=== PATIENT | female | born 1990 | race Caucasian/White ===

== ENCOUNTER 2017-05-12 08:50 | Observation (INO) | payer OTHER ==
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
[2017-05-12 09:50] LABS: HEMATOCRIT 40.9 % (38.0-47.0); HEMOGLOBIN 14.5 g/dL (12.6-16.3); LIPEMIA HEMOLYSIS FLAG 90 (0-99); MEAN CELL HEMOGLOBIN 32.5 pg (27.9-34.1); MEAN CELL HEMOGLOBIN CONCENTR. 35.5 g/dL (32.4-36.7); MEAN CELL VOLUME 91.7 fL (81.5-99.8); PLATELET CLUMPS FLAG 10 (0-99); PLATELET COUNT 174 10^3/uL (150-400); RED BLOOD CELL COUNT 4.46 10^6/uL (4.18-5.33); RED CELL DISTRIBUTION WIDTH 13.1 % (11.5-15.2)
[2017-05-12 09:59] LABS: ANION GAP 8 mEq/L (8-16); CALCIUM 8.8 mg/dL (8.5-10.4); CARBON DIOXIDE 23 mEq/l (22-31); CHLORIDE 103 mEq/L (97-110); CREATININE 0.6 mg/dL (0.6-1.0); GLOMERULAR FILTRATION RATE > 60; GLUCOSE 59 mg/dL (70-100); POTASSIUM 3.9 mEq/L (3.5-5.2); SODIUM 134 mEq/L (134-144)
[2017-05-12 13:08] LABS: FETAL STAIN NEGATIVE NEGATIVE; FETAL STAIN POSITIVE POSITIVE
[2017-05-12 14:45] LABS: FETAL STAIN LOT NUMBER 93179
== END 2017-05-12 13:25 | disposition home or self-care (01) ==
LOC: FLD 08:50
PROVIDERS: ADMIT Obstetrics & Gynecology; ATTEND Obstetrics & Gynecology
DX: Z04.1 Encounter for examination and observation following transport accident (principal); O99.89 Other specified diseases and conditions complicating pregnancy, childbirth and the puerperium; R42 Dizziness and giddiness; Z3A.28 28 weeks gestation of pregnancy
CPT/HCPCS: 59025; 76815; G0378

== ENCOUNTER 2017-08-08 04:40 | Inpatient (IN) | payer OTHER ==
[2017-08-08] MEDS ORDERED: TERBUTALINE SULFATE 1 MG/ML VIAL IV PRN (07:07)
[2017-08-08] MEDS ORDERED: LR 1,000 ML IV PRN (07:07)
[2017-08-08] MEDS ORDERED: MISOPROSTOL 200 MCG TAB PR PRN (07:07)
[2017-08-08] MEDS ORDERED: EPSOM SALT 454 GM TP PRN (07:07)
[2017-08-08] MEDS ORDERED: IBUPROFEN 600 MG TAB PO PRN (07:07)
[2017-08-08] MEDS ORDERED: OLIVE OIL 118 ML BTL MISC PRN (07:07)
[2017-08-08] MEDS ORDERED: OXYTOCIN 20 UNIT in LR 1,000 ML IV PRN (07:07)
[2017-08-08 08:26] LABS: PLATELET COUNT 172 10^3/uL (150-400)
--- NOTE | 2017-08-08 09:23 | GHP ---
[f rep st] HISTORY AND PHYSICAL DATE OF ADMISSION: 08/08/2017 ADMISSION DIAGNOSES: 1. Intrauterine at 40 weeks and 4 days. 2. Active labor. HISTORY OF PRESENT ILLNESS: Patient is a 27-year-old, 1, para 0, at 40 weeks and 4 days, with LMP 10/21/2016, an estimated due date 08/04/2017 by a 1st -trimester ultrasound at 7 weeks. Patient presents to Labor and Delivery with complaints of painful contractions, worsening every 5 minutes. Denies any leakage of fluid or vaginal bleeding. States good movement. Patient did have her membranes swept yesterday. Patient has good care at [facility], and presented in her first trimester at 8 weeks. Patient does have history of anxiety, stable throughout on Zoloft. Patient had genetic testing that was all negative. On 20-week ultrasound, anatomy was normal, however, there was a low-lying placenta. There was a follow-up ultrasound done at 32 weeks, and this resolved. Patient did receive Tdap and flu vaccine. GBS is negative. PAST OB HISTORY: Patient is a primipara. PAST SPORTS EDITOR HISTORY: Age of menarche is 14. Cycles are every 28 days for 5-7 days. LMP 10/21/2016. Positive test 11/27/2016. Patient denies history of abnormal Pap smears or any exposure to sexually transmitted diseases. MEDICATIONS: Include vitamins, Zoloft, and vitamin B6. PAST MEDICAL HISTORY: Anxiety. Migraines, stress related. PAST SURGICAL HISTORY: [place] teeth extraction. In 1997, subdural hematoma, status post a fall. FAMILY HISTORY: Maternal grandfather had colon cancer. Mother and Father with chronic hypertension. SOCIAL HISTORY: Patient is . She lives with her . 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 She denies any alcohol, tobacco, or illicit drug use. REVIEW OF SYSTEMS: 10-point review of systems negative. Pertinent positives noted in HPI. LABS: O positive, antibody negative. RPR nonreactive. Rubella immune. Hepatitis B surface antigen negative. HIV negative. [place] screen was negative, December 2016. Urine culture negative. Pap smear, gonorrhea and chlamydia cultures negative. AFP is negative. Innatal screen negative. H and H 13.6/39.1. One-hour Glucola 121. GBS culture negative. PHYSICAL EXAMINATION: On admission, VITAL SIGNS: Stable. Patient is afebrile. GENERAL: Well-nourished, well-developed female, alert and oriented x3. Mild distress secondary to pain with contractions. CARDIOVASCULAR: Regular rate and rhythm. LUNGS: Clear to auscultation bilaterally. ABDOMEN: Gravid, soft, nontender. PELVIC: On admission, she was found to be 3 cm, 70% effaced, -2 station. She ambulated for 2 hours, and then cervix changed to 4-5 cm, 80%, and -2 station. EXTREMITIES: Normal to inspection without calf tenderness or edema. HEART TONES: Category I strip, with heart rate baseline of 140 beats per minute. Positive accelerations. No decelerations. Moderate variability. On toco, she is edgar about every 5 minutes. ASSESSMENT/PLAN: Patient is a 27-year-old, 1, para 0, at 40 weeks and 4 days, in active labor. 1. Admit to Labor and Delivery for expectant management. 2. GBS culture is negative. No prophylactic antibiotics needed. 3. Patient does desire an epidural. 4. Will AROM at the next exam. 5. Anticipate vaginal delivery. /[id number]/MODL MTDD
--- NOTE | 2017-08-08 11:18 | PREANESOB ---
Obstetric Pre-Anesthesia Info - General Info Proposed Procedure: DEIDRE : 1 Para: 0 TASHA: 08/04/17 Gestational Age: 40 week(s) and 4 day(s) - Info Status: Full Term FHR Pattern: Reassuring - Labor Status Indications for Labor Analgesia: Pain Control Labor Epidural: Yes Anesthesia ROS: migraines, anxiety Allergies/Adverse Reactions: Allergy/AdvReac Type Severity Reaction Status Date / Time No Known Allergies Allergy Unverified 05/12/17 09:04 Home Medications: Medication Instructions Recorded 50 mg PO DAILY 05/12/17 Zoloft 50mg (*) 50 PO DAILY 08/08/17 Visit Medications: Generic Name Dose Route Start Last Admin Trade Name Freq PRN Reason Stop Dose Admin Lactated Ringer's 1,000 mls @ 0 mls/hr 08/08/17 07:07 Lr IV 08/09/17 07:06 PRN PRN SEE PROTOCOL CONDITIONS Protocol Per Protocol Oxytocin 20 unit/ Lactated 1,002 mls @ 150 mls/hr 08/08/17 07:07 Ringer's IV PRN PRN Post- bleeding Ibuprofen 600 mg 08/08/17 07:07 Motrin PO 02/04/18 07:06 Q6HRS PRN post , inflammation Magnesium Sulfate 454 gm 08/08/17 07:07 Epsom Salt TP 02/04/18 07:06 Q1H PRN perineal discomfort Misoprostol 800 - 1,000 mcg 08/08/17 07:07 Cytotec MS ONCE PRN Vaginal Atony/Bleeding [place] Oil 118 ml 08/08/17 07:07 Sweet Oil MISC 02/04/18 07:06 ONCE PRN perineal massage Terbutaline Sulfate 0.25 mg 08/08/17 07:07 Brethine IV 02/04/18 07:06 ONCE PRN Tachysystole - Anesthesia History Response to Local Anesthetics: Normal Anesthesia & Operative History: No Prior Problems Family Anesthesia History: Negative - Vital Signs Height/Weight (Nursing): Height 172.72 cm Weight 77.564 kg - Focused Exam Neck exam: FROM Mallampati Score: Class 1 Mouth exam: normal dental/mouth exam Pulmonary: no respiratory distress Cardiovascular: regular rate and rhythym Labs: 08/08/17 08:00 Patient ABO/Rh O POSITIVE 08/08/17 08:00 - Plan Consent Signed and on Chart: Yes Patient/Guardian Understands and Agrees to Plan: Yes Urgent/Emergent Case: Anes eval completed preop but documented later for safe timely pt care
[2017-08-08] MEDS ORDERED: FENT2MCG/ML&BUP0.1% 1 EA, fentaNYL 200 MCG, BUPIVACAINE 0.5% 20 ML in NS 100 ML IV SCH (11:20)
--- NOTE | 2017-08-08 11:22 | OBPROG ---
Labor Progress Note Assessment/Plan: Assessment: 27 y/o @ 40 4/7 wks in active labor Plan: Continue expectant management AROM-small amount of clear fluid noted FHTs - Cat I tracing Pt desires an epidural 08/08/17 11:20 Subjective/Intrapartum Course: 08/08/17 11:21 Pt is out of the tub and standing at the bedside. States pain with ctx's /10 and is requesting an epidural. Objective: 08/08/17 08:00 Patient ABO/Rh O POSITIVE 08/08/17 08:00 - SVE Dilation (cm): 8 Effacement (%): 100 Station: 0 Membranes: AROM Amniotic Fluid Color: Clear - Contraction Pattern Assessment Current Contraction Pattern: Regular (q 3-4 ) - FHR Assessment Mi FHR (bpm): 140 FHR Pattern Variability: Moderate FHR Category: 1 - Procedures Non-surgical Procedures: Amniotomy - AP Antepartum Course: 08/08/17 11:26 Pt presented in early labor at 3 cm and made change to 4-5 cm after ambulating. GBS cx negative. Oxytocin Orders Assessment - Pre-Induction/Augmentation Assessment Gestational Age: 40 week(s) and 4 day(s) ICD10 Worksheet Patient Problems: Problems Problem Status Onset Post-dates Acute - ICD10 Problem Qualifiers (1) Post-dates
[2017-08-08] MEDS ORDERED: BUPIVACAINE 0.25% 30 ML SDV ONE (11:24)
[2017-08-08] MEDS ORDERED: PHENYLEPHRINE HCL 100 MCG/ML SYR ONE (11:24)
[2017-08-08] MEDS ORDERED: NALOXONE HCL 0.4 MG/ML INJ IVP PRN (11:55)
[2017-08-08] MEDS ORDERED: PHENYLEPHRINE HCL 100 MCG/ML SYR IVP PRN (11:55)
[2017-08-08] MEDS ORDERED: ONDANSETRON 4 MG/2 ML VIAL IVP PRN (11:55)
--- NOTE | 2017-08-08 11:58 | POSTANESTH ---
Post Anesthetic Evaluation Cardiovascular Status: Normal, Stable, Similar to Pre-Op Cond Respiratory Status: Normal, Stable, Similar to Pre-op Cond. Level of Consciousness/Mental Status: Can Participate in Eval, Alert and Oriented Pain Control: Adequate, Prn Tx Ordered Nausea/Vomiting Control: Adequate, Prn Tx Ordered Complications Possibly Related to Anesthesia: None Noted
[2017-08-08] MEDS ORDERED: fentaNYL 2MCG/ML/BUP 0.1% RTU 100 ML EP SCH (12:00)
[2017-08-08] MEDS ORDERED: LR 500 ML IV SCH (12:00)
[2017-08-08] MEDS ORDERED: OLIVE OIL 118 ML BTL ONE (13:16)
[2017-08-08] MEDS ORDERED: AMMONIA AROMATIC 1 EACH AMP IH ONE (13:16)
[2017-08-08] MEDS ORDERED: LIDOCAINE 1% 300 MG/30 ML SDV ONE (13:16)
[2017-08-08] MEDS ORDERED: TERBUTALINE SULFATE 1 MG/ML VIAL ONE (13:16)
[2017-08-08] MEDS ORDERED: MISOPROSTOL 200 MCG TAB ONE (13:17)
[2017-08-08] MEDS ORDERED: OXYTOCIN 10 UNIT/ML VIAL ONE (13:17)
[2017-08-08] MEDS ORDERED: SIMETHICONE 80 MG TAB CHEW PO PRN (15:08)
[2017-08-08] MEDS ORDERED: DOCUSATE SODIUM 100 MG CAP PO PRN (15:08)
[2017-08-08] MEDS ORDERED: HYDROCORTISONE 0.5% CREAM TP PRN (15:08)
[2017-08-08] MEDS ORDERED: HYDROCODONE/APAP 5/325 TAB PO PRN (15:08)
--- NOTE | 2017-08-08 15:15 | OBDEL ---
Info Type: Vaginal Presentation at Delivery: Vertex L&D Analgesia/Anesthesia Type: Epidural GBS+: No - Hospital Course Intrapartum: 08/08/17 11:21 Pt is out of the tub and standing at the bedside. States pain with ctx's 8/10 and is requesting an epidural. Indications for Delivery: Spontaneous Labor Vaginal Delivery - Delivery Provider Delivery Physician/CNM: Char Ewing - Labor and Delivery Onset of Contractions Date: 08/07/17 Onset of Contractions Time: 23:00 Onset of Contractions Type: Spontaneous Rupture of Membranes Date: 08/08/17 Rupture of Membranes Time: 11:20 Rupture of Membranes Type: Spontaneous Amniotic Fluid Color: Clear Dilation Complete Date: 08/08/17 Dilation Complete Time: 13:42 Placenta Delivery Date: 08/08/17 Placenta Delivery Time: 14:25 Total Hours of Labor: 15 Non-surgical Procedures: Amniotomy Laceration: 2nd Degree, Other (Specify) Repair: 3-0, Vicryl Vaginal Sponge Count Correct: Yes Vaginal Needle Count Correct: Yes Vaginal Sweep Performed: Yes EBL: 350 cc Delivery Events: None Delivery Comment: Pt delivered a viable female over intact perineum with compound presentation with 8 and 8 Apgars; no nuchal cord. Cord clamping was delayed. Cord blood collected. Placenta delivered intact spontaneously with a 3-vc. 2 degree perineal lac noted to L of midline and repaired with 3-0 Vicryl under epidural. Pt [place] well. No complications. [place] Data TASHA: 08/04/17 Gestational Age: 40 week(s) and 4 day(s) Mi Delivery Date: 08/08/17 Delivery Time: 14:18 Sex of Infant: Female Score (1 Min): 8 Score (5 Min): 8 ICD10 Worksheet Patient Problems: Problems Problem Status Onset Post-dates Acute (spontaneous vaginal delivery) Acute - ICD10 Problem Qualifiers (1) Post-dates (2) (spontaneous vaginal delivery)
[2017-08-08] MEDS: IBUPROFEN 600 MG TAB PO PRN (18:22)
[2017-08-08] MEDS: SERTRALINE HCL 50 MG TAB PO SCH (20:13)
[2017-08-09] MEDS: IBUPROFEN 600 MG TAB PO PRN ×3 (08:54→21:00)
[2017-08-09] MEDS ORDERED: EPSOM SALT 454 GM TP ONE (10:35)
--- NOTE | 2017-08-09 10:35 | OBPP ---
Progress Note Assessment/Plan: Assessment: 27 y/o PPD #1 s/p doing well. Plan: Sitz baths, Ibuprofen and nursing support today. Likely d/c home tomorrow. 08/09/17 10:34 Subjective/ Course: 08/09/17 10:33 Pt is doing well this am. She has cramping controlled with Ibuprofen. She is ambulating and voiding without difficulty and baby is doing well. They are working on breast feeding. Objective: 08/08/17 08:00 Patient ABO/Rh O POSITIVE 08/08/17 08:00 Temp Pulse Resp BP Pulse Ox 36.7 C 90 17 109/74 95 08/09/17 08:00 08/09/17 08:00 08/09/17 08:00 08/09/17 08:00 08/09/17 08:00 Uterine Position/Fundal Height: Umbilicus -2 Uterine Tone: Firm Physical Exam - Physical Exam General Appearance: WD/WN, alert, no apparent distress Neck: non-tender, full range of motion, supple Respiratory: chest non-tender, lungs clear, normal breath sounds Cardiac/Chest: regular rate, rhythm Abdomen: normal bowel sounds Extremities: swelling (no), Andre's sign (neg)
[2017-08-09 20:32] VITALS: O2SAT 96
[2017-08-09] MEDS: SERTRALINE HCL 50 MG TAB PO SCH (21:00)
[2017-08-10] MEDS: IBUPROFEN 600 MG TAB PO PRN (06:21)
[2017-08-10 10:23] VITALS: BP 120/78; PULSE 80; RESP 16; TEMP 97.4
--- NOTE | 2017-08-10 10:48 | OBPP ---
Progress Note Assessment/Plan: Assessment: s/p PPD # 2 - pt is stable Plan: Plan for d/c home today Instructions reviewed with pt Rx given for [place] Cont PNV, colace and Motrin Pelvic rest RTO in 4 weeks for mood check and 6 weeks for pp visit 08/10/17 10:48 Subjective/ Course: 08/09/17 10:33 Pt is doing well this am. She has cramping controlled with Ibuprofen. She is ambulating and voiding without difficulty and baby is doing well. They are working on breast feeding. 08/10/17 10:50 Pt seen and examined. Doing well with no complaints. Mild cramping, may want a Rx for [place] just in case. She is OOB, [place] reg diet, voiding and passing flatus. No BM yet. BF well, milk starting to come in. Objective: 08/08/17 08:00 Patient ABO/Rh O POSITIVE 08/08/17 08:00 Temp Pulse Resp BP Pulse Ox 36.3 C 80 16 120/78 96 08/10/17 09:00 08/10/17 09:00 08/10/17 09:00 08/10/17 09:00 08/10/17 09:00 Uterine Position/Fundal Height: Umbilicus -2 Uterine Tone: Firm Physical Exam - Physical Exam Respiratory: lungs clear, normal breath sounds Cardiac/Chest: regular rate, rhythm Abdomen: normal bowel sounds, non-tender, soft, flatus (+) Extremities: non-tender, normal inspection Skin: normal color, warm/dry Neuro/Psych: alert, normal mood/affect, oriented x 3
--- NOTE | 2017-08-10 10:52 | OBGCSDC ---
General Delivery Information - General Info : 1 Para: 1 Abortions: 0 Type: Vaginal L&D Analgesia/Anesthesia Type: Epidural Admission Date: 08/08/17 Labs: Patient ABO/Rh O POSITIVE 08/08/17 08:00 Hct 45.2 % (38.0-47.0) 08/08/17 08:00 - Hospital Course Antepartum: 08/08/17 11:26 Pt presented in early labor at 3 cm and made change to 4-5 cm after ambulating. GBS cx negative. Intrapartum: 08/08/17 11:21 Pt is out of the tub and standing at the bedside. States pain with ctx's 01/23 and is requesting an epidural. : 08/09/17 10:33 Pt is doing well this am. She has cramping controlled with Ibuprofen. She is ambulating and voiding without difficulty and baby is doing well. They are working on breast feeding. 08/10/17 10:50 Pt seen and examined. Doing well with no complaints. Mild cramping, may want a Rx for [place] just in case. She is OOB, [place] reg diet, voiding and passing flatus. No BM yet. BF well, milk starting to come in. Vaginal - Delivery Provider Delivery Physician/CNM: Char Ewing - Diagnosis Labor: Spontaneous Rupture of Membranes Type: Spontaneous Amniotic Fluid Color: Clear Laceration: 2nd Degree, Other (Specify) Repair: 3-0, Vicryl Delivery Events: None - Procedures Non-surgical Procedures: Amniotomy - Delivery Non-surgical Procedures: Amniotomy EBL: 350 cc [place] Data TASHA: 08/04/17 Gestational Age: 40 week(s) and 6 day(s) Mi Delivery Date: 08/08/17 Delivery Time: 14:18 Sex of : Female Weight (gm): 3226 kg Score (1 Min): 8 Score (5 Min): 8 Discharge Information - Discharge Information Condition: Good Instruction/Follow Up: Four Weeks (mood check), Six Weeks ( visit)
== END 2017-08-10 12:30 | disposition home or self-care (01) | DRG 775 ==
LOC: FLD 04:40 → OBSVTOIN 07:09 → FOB 17:31
PROVIDERS: ADMIT Advanced Practice Midwife; ATTEND Obstetrics & Gynecology
PROC: 10907ZC Drainage of Amniotic Fluid, Therapeutic from Products of Conception, Via Natural or Artificial Opening (ICD-10-PCS; principal; 2017-08-08)
PROC: 10E0XZZ Delivery of Products of Conception, External Approach (ICD-10-PCS; principal; 2017-08-08)
PROC: 0KQM0ZZ Repair Perineum Muscle, Open Approach (ICD-10-PCS; principal; 2017-08-08)
DX: O70.1 Second degree perineal laceration during delivery (principal); O48.0 Post-term pregnancy; Z3A.40 40 weeks gestation of pregnancy; Z37.0 Single live birth
CPT/HCPCS: J2370; J2590; J3010; J3105